=== PATIENT | female | born 1945 | race Caucasian/White ===

== ENCOUNTER 2019-03-03 17:01 | Emergency (ER) | payer OTHER ==
[2019-03-03] MEDS ORDERED: OXYCODONE/APAP 5/325 TAB PO ONE (17:23)
--- NOTE | 2019-03-03 17:24 | EDPHY ---
H & P Stated Complaint: fall, R shoulder pain Time Seen by Provider: 03/03/19 17:20 HPI/ROS: HPI: This is a 73-year-old female who presents with Chief Complaint: Fall, right shoulder injury/pain Location: Right forehead, right shoulder Quality: Injury/pain Duration: 1 hr prior to arrival Signs and Symptoms: No bleeding, no radiation, no numbness, no weakness, no tingling, no incontinence, + decreased range of motion, no swelling, + pain, no fever Timing: Acute Severity: 07/06 Context: Patient was walking outside and accidentally slipped on the sidewalk that was wet from the rain. She fell to her right side landing on her right lateral and anterior shoulder and then hitting the right side of her forehead. She says she felt immediate, constant, severe pain in the neck portion of her right shoulder humeral area with decreased range of motion. Denies LOC/neck pain/dizziness/nausea/vomiting/amnesia. Takes 80 aspirin. Patient was able to ambulate on her own. Right-hand dominant. Daughter at bedside reports patient is mentating at baseline and was a witness to the fall. Patient is from [place] and is here visiting her daughter until Friday. Modifying Factors: None Comment: ROS: A comprehensive 10 system review of systems is otherwise negative aside from elements mentioned in the history of present illness. MEDICAL/SURGICAL/SOCIAL HISTORY: Medical history: hypothyroid, HTN, glaucoma, hyperlipidemia Surgical history: Denies Social history: Retired, nonsmoker CONSTITUTIONAL: Appears uncomfortable, elderly white female, awake and alert, mild distress HEENT: 2 in x 2 in contusion noted to right forehead with no active bleeding and normocephalic. Wears glasses. NECK: supple, no midline tenderness, flexion 45 degrees, extension 45 degrees, right and left lateral flexion 45 degrees. No meningismus. Cardiovascular: Normal S1/S2, regular rate, regular rhythm, without murmur rub or gallop. PULMONARY/CHEST: Symmetrical and nontender. no crepitus. Clear to auscultation bilaterally. Good air movement. No accessory muscle usage. ABDOMEN: Soft, nondistended, nontender, no ecchymosis. PELVIC: no pain with rocking; bilateral hips flexion 125 degrees, extension 30 degrees, with no pain internal rotation and no pain external rotation. BACK: No midline tenderness, no paraspinous spasm, deep tendon reflexes 2/2, no pain with straight leg raise, No foot drop. Achilles reflexes are equal bilaterally. Able to walk on heels and toes without difficulty. EXTREMITIES: 2/2 pulses, strength 5/5, right SHOULDER: Moderate Tenderness to palpation over AC and SA joint. Holding right arm with elbow at 90 flexion. She is able to supinate and pronate her arm. no clavicle deformity appreciated. Right WRIST: Extension to 70, flexion to 80, radial deviation to 20 degree, ulnar deviation to 30, no scaphoid tenderness, no tenderness over ulnar styloid, no tenderness over radial styloid. DIP/PIP/MCP flexion/ extension intact with good light touch sensation. no deformities, no clubbing, no cyanosis, no edema. NEUROLOGICAL: no focal neuro deficits. GCS 15. Light touch sensation intact. SKIN: Warm and dry, no erythema. no rash. Good capillary refill. Source: Patient Exam Limitations: No limitations - Personal History Current Tetanus/Diphtheria Vaccine: Yes Current Tetanus Diphtheria and Acellular Pertussis (TDAP): Yes - Medical/Surgical History Hx Asthma: No Hx Chronic Respiratory Disease: No Hx Diabetes: No Hx Cardiac Disease: No Hx Renal Disease: No Hx Cirrhosis: No Hx Alcoholism: No Hx HIV/AIDS: No Hx Splenectomy or Spleen Trauma: No Other PMH: hypothyroid, HTN, glaucoma, hyperlipidemia - Social History Smoking Status: Never smoked Constitutional: Initial Vital Signs Temperature (C) 36.7 C 03/03/19 17:09 Heart Rate 70 03/03/19 17:09 Respiratory Rate 16 03/03/19 17:09 Blood Pressure 158/85 H 03/03/19 17:09 O2 Sat (%) 95 03/03/19 17:09 O2 Delivery Mode Room Air Allergies/Adverse Reactions: carbamazepine [From Tegretol] Allergy (Verified 03/03/19 17:07) Home Medications: Medication Instructions Recorded Aspirin 03/03/19 Atorvastatin Calcium 03/03/19 Calcium 03/03/19 Dulcolax 03/03/19 Fluticasone Nasal 03/03/19 Latanoprost 03/03/19 Levothyroxine 03/03/19 Loratadine 03/03/19 Losartan Potassium 03/03/19 MSM 03/03/19 Magnesium 03/03/19 Meloxicam 03/03/19 Multivitamin 03/03/19 Dora-3 Fatty Acids 03/03/19 Omeprazole 03/03/19 Triamterene 03/03/19 oxyCODONE/APAP [Percocet 1 - 2 tab PO Q4H PRN #20 tab 03/03/19325 (*)] Medical Decision Making - Diagnostics Imaging Results: Imaging Impressions Shoulder X-Ray 03/03/19 17:16 Impression: Acute angulated displaced right three-piece surgical neck fracture. Head CT 03/03/19 17:24 Impression: 1. Small right frontal scalp hematoma. 2. No acute fracture or acute intracranial hemorrhage. Findings discussed with Emergency Department physician social services assistant, Lluvia Iqbal on 03/03/2019, 18:10. Procedures: Procedure: Splint placement. A right coaptation splint and sling applied. After application of the splint I returned and re-examined the patient. The splint was adequately immobilizing the joint and distal to the splint the patient's circulation and sensation was intact. ED Course/Re-evaluation: Vital signs reviewed and show elevated blood pressure upon arrival likely due to pain. Fall was mechanical in nature. Percocet x2 with p.o. Zofran Based on nexus protocol of age greater than 65 years old and on aspirin, head CT imaging ordered Patient has no neck pain and no midline tenderness, will not order CT cervical CT imaging Right shoulder x-ray my read via PAC shows displaced, angulated humeral neck fracture Placed in coaptation splint, sling, orthopedic follow up for expectant surgery X-rays provided on disc as from out of town. 1808: Called by radiologist, Dr. Romero, who reports head CT scan shows no acute intracranial process does show small right frontal hematoma. No signs of neurovascular compromise/tenting of skin/compartment syndrome/ extremities and joints examined above and below area of concern and are neurovascularly intact. This patient was seen under the supervision of my secondary supervising physician. I evaluated and cared for this patient with attending. Differential Diagnosis: Shoulder injury differential diagnosis includes but is not limited to clavicle fracture, contusion, AC joint separation, rotator cuff injury, labral tear, humeral head fracture, sprain, scapula fracture. - Data Points Medications Given: Discontinued Medications Ondansetron HCl (Zofran Odt) 4 mg PO EDNOW ONE Stop: 03/03/19 17:29 Last Admin: 03/03/19 17:37 Dose: 4 mg Oxycodone/Acetaminophen (Percocet 5/325) 2 tab PO EDNOW ONE Stop: 03/03/19 17:24 Last Admin: 03/03/19 17:37 Dose: 2 tab Departure - Departure Disposition: Home, Routine, Self-Care Clinical Impression: Fall from slip, trip, or stumble Qualifiers: Encounter type: initial encounter Qualified Code(s): W01.0XXA - Fall on same level from slipping, tripping and stumbling without subsequent striking against object, initial encounter Closed fracture of neck of right humerus Qualifiers: Encounter type: initial encounter Qualified Code(s): S42.211A - Unspecified displaced fracture of surgical neck of right humerus, initial encounter for closed fracture Hematoma of frontal scalp Qualifiers: Encounter type: initial encounter Qualified Code(s): S00.03XA - Contusion of scalp, initial encounter Condition: Good Instructions: ORIF of an Arm Fracture (DC), How to Use a Sling (ED), Hematoma ( ED), Proximal Humerus Fracture (ED) Additional Instructions: Keep the splint dry and in place until seen by Orthopedics. Wear the sling while out of bed as needed for comfort. Take Tylenol 650 mg every 4 hours and/or Ibuprofen 600 mg every 8 hours with food as needed for pain. Use Percocet every 6 hours as needed for severe/break through pain. Do not use Tylenol and Percocet concomitantly. Apply ice for 30 minutes at a time; 2-3 times per day for the next 1-2 days. Follow up with Orthopedics in 3-7 days at which time they will evaluate you and most likely recommend surgical repair. Please call the orthopedic office tomorrow morning and advise them that you have a proximal arm fracture and need to be seen in the next 7 days for impending surgery. Return to the ER immediately if you experience new or worsening pain, discoloration, numbness, tingling, or any other symptoms that concern you. Follow-Up: Please follow-up as noted above. Follow-up sooner if your condition worsens or if you develop any new problems. Call as soon as possible for an appointment. Be clear when you call for an appointment that this is an Emergency Department follow-up. Contact the Emergency Department if you have trouble arranging follow-up care. Our referrals are not based on your insurance network. When time allows, contact your insurance carrier to verify the referral physician is in your plan. If not, get a referral for an in-network internship. Referrals: LISA PARRISH MD [Other] - As per Instructions Remi Santos MD [Medical Doctor] - As per Instructions Prescriptions: oxyCODONE/APAP 5/325 [Percocet 5/325 (*)] 1 - 2 tab PO Q4H PRN #20 tab PRN Reason: Pain, Severe
[2019-03-03] MEDS ORDERED: ONDANSETRON DISINTEGRATING 4 MG TAB PO ONE (17:28)
[2019-03-03 19:20] VITALS: BP 142/64
== END 2019-03-03 19:20 | disposition home or self-care (01) ==
PROC: 2W38X1Z Immobilization of Right Upper Extremity using Splint (ICD-10-PCS; principal; 2019-03-03)
DX: S42.211A Unspecified displaced fracture of surgical neck of right humerus, initial encounter for closed fracture (principal); S00.03XA Contusion of scalp, initial encounter; W01.0XXA Fall on same level from slipping, tripping and stumbling without subsequent striking against object, initial encounter; Y93.K1 Activity, walking an animal; Y92.480 Sidewalk as the place of occurrence of the external cause